=== PATIENT | female | born 1965 | race Caucasian/White ===

== ENCOUNTER 2016-11-11 11:49 | Day surgery (SDC) | payer MEDICARE ==
[~2016-11-11] VITALS: Ht 167.6 cm; Wt 118.2 kg
[~2016-11-11 11:49] MED LIST: BISOPROLOL-HCT1 EAC1 PO; CELEXA40 MG PO; CYMBALTA30 MG PO; LANTUS INSULIN10 ML SC; NAPROSYN500 MG PO; REQUIP1 MG PO; TANZEUM50 MG/0.5 SC
[2016-11-11] MEDS ORDERED: LEXAPRO20 MG PO (13:58)
[2016-11-11 14:02] VITALS: BP 136/84; Ht 167.6 cm; Wt 118.2 kg
[2016-11-11 14:05] LABS: BASOPHILS 0.1 % (0-2); EOSINOPHILS 2.2 % (0-7); HEMATOCRIT 43.1 % (36.0-48.0); HEMOGLOBIN 14.6 g/dL (12-16); IMMATURE GRANULOCYTES 0.1 % (0-5); LYMPHOCYTES 25.8 % (15-50); MCH 28.1 pg (26.0-34.0); MCHC 33.9 g/dL (31.0-37.0); MEAN PLATELET VOLUME 11.3 fL (7.4-10.4); MONOCYTES 10.8 % (2-11); PLATELET COUNT 247 10x3/uL (130-400); RBC 5.19 10x6/uL (4.00-5.40); RDW 13.4 % (11.5-14.5); WBC 9.9 10x3/uL (4.8-10.8)
[2016-11-11 14:21] LABS: CALC OSMOLALITY 280 mosm/kg (275-300); CALCIUM 8.6 mg/dL (8.5-10.1); CARBON DIOXIDE 30.5 mmol/L (21.0-32.0); CHLORIDE - SERUM 100 mmol/L (98-107); CREATININE - SERUM 0.4 mg/dL (0.6-1.3); GLUCOSE 215 mg/dL (74-106); POTASSIUM - SERUM 4.7 mmol/L (3.5-5.1); SODIUM 137 mmol/L (136-145); UREA NITROGEN 16 mg/dL (7-18); eGFR NON AFRICAN AMERICAN > 90 mL/min (90-120)
--- NOTE | 2016-11-11 17:54 | NUR ---
2315--DISCHARGE INSTRUCTIONS GIVEN, PT VERBALIZES UNDERSTANDING. PT OFF UNIT VIA RICHARD. VIC HYMAN
--- NOTE | 2016-11-15 07:44 | OP ---
PATIENT NAME: MANAV CAMPOS MEDICAL RECORD: [id number] :61 LOCATION:D.OPS ADMISSION DATE: SURGEON: EITAN GRADY DO DATE OF OPERATION: 11/11/2016 PROCEDURE: EGD with biopsies. INDICATIONS: Epigastric pain, heartburn, nausea. SCOPE: Olympus video gastroscope. MEDICATIONS: Propofol 200 mg IV per anesthesia. ESTIMATED BLOOD LOSS: Minimal. COMPLICATIONS: None. FINDINGS: Informed consent was given. The patient was made comfortable with the above medication. After reaching an adequate level of sedation by slow IV push, the patient was placed on her left side. The scope was then advanced under direct visualization through the mouth to the third portion of the duodenum. The upper, middle, and lower thirds of the esophagus appeared normal. At the GE junction, there was mild evidence of reflux esophagitis. The endoscope was advanced beyond the GE junction into the stomach and retroflexed to view the cardia, where a small sliding hiatal hernia was present. The fundus and body of the stomach appeared normal. As you approached the antrum and prepyloric region, there was some erythema and granularity consistent with possible gastritis. Biopsies were taken to submit for histology and to rule out H. pylori. The endoscope was advanced beyond the pylorus into the duodenum where the bulb, first portion, second portion, and third portion appeared normal. The scope was then withdrawn from the patient. The patient tolerated the procedure well and there were no complications. IMPRESSION: 1. LA class A reflux-induced esophagitis. 2. Possible gastritis, biopsies taken. 3. Small sliding hiatal hernia. PLAN AND RECOMMENDATIONS: 1. Discharge home when recovery parameters are met. 2. Continue current diet. 3. Continue current medications. 4. Follow up in GI clinic as currently scheduled for q.6 months ultrasound and liver enzymes. 5. Follow up with primary care as scheduled. TRANSINT:[id number] Voice Confirmation ID: [id number] DOCUMENT ID: [id number] OPERATIVE REPORT [id number] MANAV CAMPOS EITAN GRADY DO at 0744 CC: [id number] DICTATION DATE: 11/11/16 1636 BILLING TYPIST: 11/11/16 2313 [facility] 11/11/16 [id number] [place] [address]
== END 2016-11-11 17:30 | disposition home or self-care (01) ==
LOC: D.OPS 11:49
PROVIDERS: Anesthesiology
DX: R10.13 Epigastric pain (principal); K44.9 Diaphragmatic hernia without obstruction or gangrene; R11.0 Nausea; K21.0 Gastro-esophageal reflux disease with esophagitis; R12 Heartburn; Z01.812 Encounter for preprocedural laboratory examination; E11.9 Type 2 diabetes mellitus without complications; I10 Essential (primary) hypertension; G47.30 Sleep apnea, unspecified; K76.0 Fatty (change of) liver, not elsewhere classified